=== PATIENT | female | born 1980 | race Two or more races ===

== ENCOUNTER 2016-10-29 17:12 | Inpatient (IN) | payer MEDICAID, OTHER ==
[2016-10-29] MEDS ORDERED: IV START KIT ONE (20:15)
[2016-10-29] MEDS ORDERED: OXYTOCIN 10 UNITS/ML VIAL ONE (20:15)
[2016-10-29] MEDS ORDERED: MINERAL OIL 25 ML BOT ONE (20:16)
[2016-10-29] MEDS ORDERED: LIDOCAINE Viscous 2% 15 ML UDCUP ONE (20:16)
[2016-10-29] MEDS ORDERED: LACTATED RINGERS 1,000 ML ONE (20:16)
[2016-10-29] MEDS ORDERED: PUMP TUBING ONE (20:16)
[2016-10-29] MEDS ORDERED: OXYTOCIN IN LR 500 ML IV ONE ×2 (20:16→20:26)
[2016-10-29] MEDS ORDERED: LIDOCAINE 1% (PRES FREE) 30 ML VIAL ONE (20:16)
--- NOTE | 2016-10-29 20:43 | PCMAN ---
OB Admission Note - History : 4 Term: 3 : 0 Abortions (S&E): 0 Livin EDC:: 10/29/16 Gestational Age (weeks): 40 Days (#/7): 0 Admit Cervical Dilation:: 1.5 Admit Cervical Effacement (%):: 50 Admit Station:: -3 Admit Presentaton:: Vertex Membrane Status: Ruptured Membranes Comment:: unknown SROM, high leak Contractions: Yes Contraction Frequency:: Q3 mins Heart Rate:: 125 Status:: Category 1, moderate, accels present, no decels Summary of Course:: 36 yo at 40 wks, presented to triage with c/o contractions, blood- tinged discharge and leaking fluid. RN performed sterile spec, small amount of pooling and ferning seen. Per RN, still feels slick membrane on SVE, which was essentially unchanged after 3 hrs (1.5/50/-3). Patient with contractions Q3 mins. GBS neg. Vitals stable, afebrile. Unknown SROM time, but feels like she has possibly been leaking some since membranes were stripped in clinic on 2016. PMHx: sciatica PSHx: cholecystectomy 2007 Meds: PNV SocHx: denies tob, etoh or illicit drugs OBHx: 2005 40 wk (7lb 13 oz) 2007 40 wk (8 lb 3 oz) 2013 40 wk (8 lb 13oz) - Labs Blood Type: O (+) positive Hct/Hgb:: 37.7 Rubella Status: Immune GBS Status: Negative Abnormal Labs: None Other Labs:: Antibody neg HIV NR RPR NR HBSAg Neg GC/CT neg Declined quad 1hr glucola 116 Mild thrombocytopenia 121 at 28 wks - Review of Systems c/o ctx, LOF and bloody show. Denies HINKLE, CP, SOB, RUQ pain. - Physical Exam General: Afebrile, No Acute Distress Psych/Mental Status: Mood/Affect Appropriate Neurological: Grossly Intact, Normal Gait, Normal Speech Lungs: Clear to Auscultation Bilaterally, Normal Air Movement Cardiovascular: Regular Rate and Rhythm, Normal S1, Normal S2 Genitourinary: Normal Female Genitalia Skin: Normal Color, Warm, Dry - Problems (1) Rupture of membranes with delay of delivery Status: Acute Code: O42.90Assessment/Plan: 36 yo at 40 wks, GBS neg Patient with likely high leak, pool and fern positive - Will admit - Will start low dose pitocin for cervical ripening (go too frequently for cervidil) - expectant management - watch for s/sx of chorioamnionitis given unknown SROM time/duration
[2016-10-29 22:08] LABS: HEMATOCRIT 40.9 % (37.0-47.0); MEAN CELL VOLUME 94.5 fl (81.0-99.0); MEAN CORPUSCULAR HEMOGLOBIN 32.3 pg (27.0-31.0); MEAN CORPUSCULAR HGB CONC 34.2 g/dl (33.0-37.0)
[2016-10-29 22:12] VITALS: BMI 28.3
[2016-10-30] MEDS: LACTATED RINGERS 1,000 ML IV SCH ×3 (00:01→06:17)
[2016-10-30] MEDS: OXYTOCIN IN LR 500 ML IV PRN ×7 (00:54→12:29)
--- NOTE | 2016-10-30 05:07 | PDOC36 ---
Provider Note Subject: MD Interval Note Note: Patient reports contractions starting to feel more painful, feeling more pressure. She has been walking in the room and sitting on birthing ball. Pit at 3. SVE /-3, more anterior. More fluid seen on her pad, but still able to feel slick membrane against head on exam. Plan is for epidural when she is more painful. FHT: Catgory 1, 130, moderate variability, accels present, no decels TOCO: Q1.5 - 5 mins, difficult to trace when patient is moving A/P: 36 yo at 40 2/7 wks, SROM (high leak), GBS neg - will continue low dose pitocin - plan for epidural once more painful - monitor for s/sx of chorio
[2016-10-30] MEDS ORDERED: EPIDURAL PUMP SET ONE (08:22)
[2016-10-30] MEDS ORDERED: FENTANYL/ROPIVACAINE EPIDURAL 250 ML EP ONE (08:22)
[2016-10-30] MEDS ORDERED: EPIDURAL PROCEDURE TRAY ONE (09:06)
[2016-10-30] MEDS ORDERED: METOCLOPRAMIDE HCL 5 MG/ML 2ML VIAL IV PRN (09:10)
[2016-10-30] MEDS ORDERED: ONDANSETRON 4 MG/2ML 2 ML VIAL IV PRN (09:10)
[2016-10-30] MEDS ORDERED: DIPHENHYDRAMINE HCL 50 MG/1 ML VIAL IV PRN (09:10)
[2016-10-30] MEDS ORDERED: LACTATED RINGERS 1,000 ML IV SCH (09:10)
[2016-10-30] MEDS ORDERED: SODIUM CHLORIDE 0.9% 500 ML IV PRN (09:10)
[2016-10-30] MEDS ORDERED: NALOXONE HCL 0.4 MG/ML VIAL IV PRN (09:10)
[2016-10-30] MEDS ORDERED: LACTATED RINGERS 500 ML IV PRN (09:10)
[2016-10-30] MEDS ORDERED: EPHEDRINE SULFATE 50 MG/ML 1ML VIAL IV PRN (09:10)
[2016-10-30] MEDS ORDERED: NALBUPHINE HCL 20 MG/ML AMP IV PRN (09:10)
[2016-10-30] MEDS ORDERED: FENTANYL/ROPIVACAINE EPIDURAL 250 ML EP SCH (09:41)
--- NOTE | 2016-10-30 15:20 | PCMDEL ---
Delivery Note - Delivery Delivery (Date): 10/30/16 Delivery (Time): 14:16 Gender: Male Presentation: Cephalic Position: OA Umbilical Cord: 3 Vessel Delayed Cord Clamping:: < 1-2 min 1 Minute Total: 9 5 Minute Total: 9 Placenta:: intact EBL:: 200 Perineum:: 2nd degree perineal Suture:: 3-0 Vicryl Anesthesia/Meds:: epidural Comments:: Uncomplicated over intact perineum with assistance by Dr. Aixa Rene. Head/shoulders easily delivered, infant placed on maternal abdomen. Cord clamping delayed by 1minute and cut by FOB. Active management of 3rd stage with pitocin IV. Placenta delivered intact. A second degree perineal lac was repaired in standard fashion. EBL 200cc. Hemostasis confirmed.
[2016-10-30] MEDS ORDERED: BENZOCAINE/MENTHOL 60 APPLIC/BOT TP PRN (16:36)
[2016-10-30] MEDS ORDERED: LANOLIN 50 APPLIC/7G TUBE TP PRN (16:36)
[2016-10-30] MEDS ORDERED: OXYCODONE HCL 5 MG TABLET PO PRN (16:36)
[2016-10-30] MEDS: IBUPROFEN 600 MG TABLET PO PRN (17:34)
[2016-10-30] MEDS: HYDROCODONE/ACETAMINOPHEN 5/325MG TABLET PO PRN (19:45)
[2016-10-31] MEDS: IBUPROFEN 600 MG TABLET PO PRN ×2 (03:35→10:20)
[2016-10-31] MEDS: HYDROCODONE/ACETAMINOPHEN 5/325MG TABLET PO PRN ×3 (03:35→14:35)
[2016-10-31 06:45] LABS: HEMOGLOBIN 10.9 gm/l (12.0-16.0)
--- NOTE | 2016-10-31 10:19 | PDOC44 ---
- Subjective Day: 1 Doing well, Pain well controlled with po meds. No dizziness, CP, SOB, palpitations. Light lochia. Reports Pain Tolerable, Reports , Reports Tolerating Regular Diet, Denies Fever - Objective Temp Pulse Resp BP Pulse Ox 98.0 F 64 16 90/52 10/31/16 07:52 10/31/16 07:52 10/31/16 07:52 10/31/16 07:52 Lab Results 10/31/16 06:00 Hgb 10.9 L D Hct 33.0 L Current Medications Generic Name Dose Route Start Last Admin Trade Name Freq PRN Reason Stop Dose Admin Acetaminophen/Hydrocodone Bitart 1 - 2 tab 10/30/16 16:36 10/31/16 08:08 [place] 5/325 PO 1 tab Q4H PRN Administration Pain (Moderate) Benzocaine/Menthol 1 applic 10/30/16 16:36 Dermoplast TP PRN PRN Patient Comfort Emollient Ointment 1 applic 10/30/16 16:36 10/30/16 20:08 [id number] TP 1 tube PRN PRN Administration sore nipples Ropivacaine/Fentanyl/NS 250 mls @ 0 mls/hr 10/30/16 09:41 Fentanyl 2 Mcg/Ml + Ropivacaine 0.125% Ep Bag EP EPI DONY Protocol Per Protocol Ibuprofen 600 mg 10/30/16 16:36 10/31/16 03:35 Motrin PO 600 mg Q6H PRN Administration Pain (Mild) Oxycodone HCl 5 - 10 mg 10/30/16 16:36 Roxicodone PO Q3H PRN Pain (Severe) Sodium Chloride 10 ml 10/30/16 09:00 Normal Saline 10ml Flush IV Q8HR [facility] Sodium Chloride 10 ml 10/30/16 16:36 Normal Saline 10ml Flush IV PRN PRN IV Flush - Physical Exam General: Afebrile, No Acute Distress Psych/Mental Status: Mood/Affect Appropriate, Bonding Well Neurological: Grossly Intact, Alert HEENT: Atraumatic, EOMI Lungs: Clear to Auscultation Bilaterally, Normal Air Movement Cardiovascular: Regular Rate and Rhythm, Normal S1, Normal S2, No Murmur Fundus: Firm, Midline, Below Umbilicus - Problems:Assessment/Plan (1) Normal vaginal delivery Status: AcuteAssessment/Plan: PPD#1, doing well Meeting pp milestones Cont routine pp care Stable for dc home (2) Prolonged rupture of membranes, delivered Status: Acute Disposition: Stable, Anticipate DC to Home
[2016-10-31 13:58] VITALS: BP 104/68
== END 2016-10-31 16:06 | disposition home or self-care (01) | DRG 775 ==
LOC: FBCOUT 17:12 → FBC 17:16 → FBCOUT 20:15
PROVIDERS: ADMIT Family Medicine; ATTEND Family Medicine
PROC: 10E0XZZ Delivery of Products of Conception, External Approach (ICD-10-PCS; principal; 2016-10-30)
PROC: 0KQM0ZZ Repair Perineum Muscle, Open Approach (ICD-10-PCS; 2016-10-30)
PROC: 00HU33Z Insertion of Infusion Device into Spinal Canal, Percutaneous Approach (ICD-10-PCS; 2016-10-30)
DX: O42.12 Full-term premature rupture of membranes, onset of labor more than 24 hours following rupture (principal); O70.1 Second degree perineal laceration during delivery; Z37.0 Single live birth; Z3A.40 40 weeks gestation of pregnancy; Z86.2 Personal history of diseases of the blood and blood-forming organs and certain disorders involving the immune mechanism